=== PATIENT | male | born 2000 | race Caucasian/White ===

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

== ENCOUNTER 2021-03-25 22:32 | Emergency (ER) | payer SELFPAY ==
[~2021-03-25] VITALS: Ht 170.2 cm; Wt 130.0 kg
[~2021-03-25 22:32] MED LIST: KLONOPIN2 MG PO; NORCO 325 MG-51 TAB PO
[2021-03-25 22:55] VITALS: TEMP 97.6
[2021-03-25 23:41] LABS: BASO % 0.4 % (0.0-2.0); EOS # 0.1 (0.0-0.7); GRAN # 6.1 (1.4-6.5); GRAN % 65.2 % (42.2-75.2); HEMATOCRIT 44.4 % (42.0-52.0); HEMOGLOBIN 14.6 g/dl (13.5-18.0); LYMPH # 2.5 (1.2-3.4); LYMPH % 26.6 % (20.0-51.0); MEAN CELL VOLUME 92 fl (80.0-100.0); MEAN CORPUSCULAR HEMOGLOBIN 30 pg (27.0-31.0); MEAN CORPUSCULAR HGB CONC 33 g/dl (33.0-37.0); MEAN PLATELET VOLUME 10.6 fl (7.4-10.4); MONO # 0.6 (0.1-0.6); MONO % 6.6 % (1.7-9.3); PLATELET COUNT 285 K/mm3 (130-400); RED BLOOD COUNT 4.83 M/mm3 (4.20-5.60); REDCELL DISTRIBUTION WIDTH-CV 12.5 % (11.5-14.5)
[2021-03-25 23:49] LABS: ALANINE AMINOTRANSFERASE 53 U/L (4-49); ALBUMIN 4.5 gm/dL (3.5-5.0); ALKALINE PHOSPHATASE 61 U/L (50-136); ANION GAP 11 mmol/L (7-16); AST,SGOT 46 U/L (15-37); BILIRUBIN,TOTAL 0.7 mg/dL (0.0-1.0); BLOOD UREA NITROGEN 10 mg/dL (9-20); CALCIUM 9.3 mg/dL (8.4-10.2); CARBON DIOXIDE 27 mmol/L (22-30); CHLORIDE 99 mmol/L (98-107); CREATININE, serum 0.81 (0.66-1.25); GLUCOSE 110 mg/dL (74-106); LIPASE 101 U/L (23-300); POTASSIUM 3.5 mmol/L (3.4-5.0); SODIUM 138 mmol/L (137-145); TOTAL PROTEIN 8.3 gm/dL (6.4-8.2)
[2021-03-26 00:35] LABS: TROPONIN-I < 0.012 ng/mL (0.000-0.035)
[2021-03-26] MEDS ORDERED: ROBAXIN 50500 MG/TAB PO (01:55)
[2021-03-26] MEDS ORDERED: BONINE25 MG PO (01:55)
[2021-03-26] MEDS ORDERED: MOTRIN 400400 MG/TAB PO (01:55)
[2021-03-26] MEDS ORDERED: PROVENTIL0.09 MG/A1 IH (01:55)
[2021-03-26 02:16] VITALS: BP 131/80; PULSE 97
== END 2021-03-26 02:30 | disposition home or self-care (01) ==
LOC: COL.ER 22:32
PROVIDERS: Emergency Medicine
DX: S20.20XA Contusion of thorax, unspecified, initial encounter (principal); F17.210 Nicotine dependence, cigarettes, uncomplicated; X58.XXXA Exposure to other specified factors, initial encounter
CPT/HCPCS: J2060

== ENCOUNTER → 2022-03-09 | Outpatient (CLI) | payer OTHER ==
[~2022-03-09] MED LIST changes: +BONINE25 MG PO; +MOTRIN 400400 MG/TAB PO; +PROVENTIL0.09 MG/A1 IH; +ROBAXIN 50500 MG/TAB PO
== END ==
LOC: COL.RAD 08:28
DX: R10.11 Right upper quadrant pain (principal); R11.0 Nausea